=== PATIENT | female | born 1960 | race Caucasian/White ===

== ENCOUNTER 2017-05-17 12:51 | Emergency (ER) | payer OTHER ==
[~2017-05-17] VITALS: Ht 157.5 cm; Wt 80.1 kg
[2017-05-17 12:56] VITALS: BP 156/89
[2017-05-17] MEDS ORDERED: METF500T4 PO (15:01)
[2017-05-17] MEDS ORDERED: INSU100V8 SQ (15:01)
== END 2017-05-17 15:15 | disposition home or self-care (01) ==
LOC: ED 15:09
DX: S90.121A Contusion of right lesser toe(s) without damage to nail, initial encounter (principal); I10 Essential (primary) hypertension; E11.9 Type 2 diabetes mellitus without complications; X58.XXXA Exposure to other specified factors, initial encounter; Y93.02 Activity, running; Y92.098 Other place in other non-institutional residence as the place of occurrence of the external cause; Y99.8 Other external cause status
CPT/HCPCS: 82962; 99284